=== PATIENT | female | born 1990 | race Hispanic/Latino ===

== ENCOUNTER 2024-03-31 19:27 | Emergency (ER) | payer BC, SELFPAY ==
[2024-03-31 19:30] VITALS: BP 112/74
--- NOTE | 2024-03-31 20:34 | ED.SKININJ ---
HPI-Injury
General
Chief Complaint: Skin Problem
Source: patient
Exam Limitations: none
Time Seen by Provider: 03/31/24 20:22
History of Present Illness-Injury
Initial Injury comments:
34-year-old female presents with crushing type injury to the left ring finger she sustained today. She was skin and the handle for this he will dorsalis her finger. Last tetanus unknown. She notes swelling and pain with a laceration
Phy Exam
Physical Exam
Physical Exam:
General: Well-appearing female no acute respiratory distress
Musculoskeletal exam: Left ring finger swollen tender to the distal portion. There is a laceration over the distal phalanx on the volar and radial aspect. This measures about 1.5 cm
Able to flex and extend at the DIP joint of the ring finger of the left hand. She has good sensation to the distal portion of the left handWith brisk capillary refill
Course
Orders/Labs/Results
Orders:
Orders
03/31/24 19:35
Finger(s)/Thumb 2 View Lt [CR Finger(s)/thumb Min 2 Vw Lt] Urgent
Comment: left ring finger
Reason For Exam: crush injury
Indicate Which Finger:: Ring Finger
03/31/24 21:09
Cephalexin Monohydrate [Keflex] 500 mg PO NOW STA
Tetanus/Diphth/Acelpertussis [Adacel] 0.5 ml IM .ONCE ONE
Vital Signs
Initial and Last Documented VS:
Initial Vital Signs
Temp Pulse Resp BP Pulse Ox
97.8 F 84 16 112/74 98
03/31/24 19:30 03/31/24 19:30 03/31/24 19:30 03/31/24 19:30 03/31/24 19:30
Last Documented Vital Signs
Temp Pulse Resp BP Pulse Ox
97.8 F 84 16 112/74 98
03/31/24 19:30 03/31/24 19:30 03/31/24 19:30 03/31/24 19:30 03/31/24 19:30
MDM/Problems Addressed
Differential Diagnosis Includes:
Crushing injury with laceration to left ring finger. Consider underlying fracture
X-rays left left hand were obtained and visualized and demonstrated comminuted fracture of the distal portion of the left ring finger
Digital block provided at the base of the finger with 1% lidocaine. The finger was soaked in saline and peroxide
The wound will require suture closure.
*Critical Care Note
Total Time (30-74mins, 75-104mins- exclusive of procedures): Not Applicable
Update Note
Update Note:
Digital block provided adequate anesthesia. The finger was soaked in saline and peroxide and cleansed. 5-0 Prolene sutures were used in a simple erupted fashion to provide wound edge approximation and hemostasis. 5 sutures were required to do so.
Gauze dressing was applied with a splint tetanus vaccine updated. She was started prophylaxis. She was advised follow-up with orthopedics for further evaluation.
ED Attending Note
-
Portions of this chart may have been created with voice recognition software.� Occasional wrong word or��sound alike� substitutions may have occurred due to the inherent limitations of voice recognition software.
Discharge Plan
Departure
Patient Disposition: Home (Routine Discharge)
Date of Disposition: 03/31/24
Time of Disposition: 21:13
Patient with high blood pressure during this ER visit?: No
Discharge Problem:
Laceration, Finger fracture, left
Instructions: Wound Care (DC)
Prescriptions:
New
cephalexin 500 mg capsule
500 mg PO Q8H 7 Days Qty: 21 0RF
Referrals:
Sonja Santiago I., DO [Active] -
Activity Restrictions/Additional Instructions:
Have sutures removed in 2 weeks. Take antibiotics as directed. Follow-up with orthopedics. As discussed, you have a fracture at the end of your finger. Keep splint on
Interventions
Interventions:
*Risk Screen - Suicide Last Done: 03/31/24 20:46
*General Assessment Last Done: 03/31/24 20:46
*Neglect/Abuse Screening Last Done: 03/31/24 20:46
*ED COVID-19 Vaccine History Last Done: 03/31/24 20:46
ED-Skin Assessment Last Done: 03/31/24 20:46
Discharge Date and Time
Print Language: [place] CITIZEN
[2024-03-31] MEDS: KEFLEX 500 MG PO (21:32)
[2024-03-31] MEDS: ADACEL 0.5 ML IM (21:33)
== END 2024-03-31 21:37 | disposition home or self-care (01) ==
LOC: EMR 19:27
PROVIDERS: EMERGENCY PHYSICIAN Emergency Medicine
DX: S62.635B Displaced fracture of distal phalanx of left ring finger, initial encounter for open fracture (principal); W23.0XXA Caught, crushed, jammed, or pinched between moving objects, initial encounter; Z23 Encounter for immunization
CPT/HCPCS: 12001; 29130; 90471; 99283; 73140; 90715